=== PATIENT | female | born 1950 | race Caucasian/White ===

== ENCOUNTER → 2025-02-25 | Outpatient (CLI) | payer OTHER, SELFPAY ==
--- NOTE | 2025-02-25 12:34 | XR_ITS ---
Examination: Knee, left , 3 views Technique: Knee AP, lateral, oblique 3 views Date and time of exam: February 25, 2025 1333 hours INDICATIONS: Left knee pain years FINDINGS: Advanced tricompartment osteoarthritis, most severe medial joint space Moderate knee effusion No fracture IMPRESSION: Advanced tricompartment osteoarthritis
== END | disposition home or self-care (01) ==
LOC: CDIM 12:17
PROVIDERS: PCP Internal Medicine; Referring Provider Physical Medicine & Rehabilitation Pain Medicine; Visit Provider Physical Medicine & Rehabilitation Pain Medicine
DX: M17.12 Unilateral primary osteoarthritis, left knee (principal)
CPT/HCPCS: 73562

== ENCOUNTER → 2025-04-07 | Outpatient (CLI) | payer OTHER, SELFPAY ==
[2025-04-07 10:29] LABS: Basophils # (Auto) 0.1 Thou/mm3 (0.0-0.2); Basophils % (Auto) 1 % (0-2.5); Eosinophils # (Auto) 0.3 Thou/mm3 (0.0-0.5); Eosinophils % (Auto) 6 % (0-10); Hematocrit 35.8 % (36.0-46.0); Immature Granulocytes % (Auto) 0 % (0-0); Immature Granulocytes Auto 0.01 Thou/mm3 (0.00-0.00); Lymphocytes # (Auto) 1.6 Thou/mm3 (1.0-4.8); Lymphocytes % (Auto) 31 % (10-50); Mean Corpuscular HGB Conc 33.5 g/dl (31.0-37.0); Mean Corpuscular Hemoglobin 28.4 pg (25.0-35.0); Mean Corpuscular Volume 85 fL (80-100); Monocytes # (Auto) 0.3 Thou/mm3 (0.0-0.8); Monocytes % (Auto) 6 % (0-12); Neutrophils % (Auto) 57 % (37-80); Nucleated Red Blood Cell % 0 /100 WBC (0); Platelet Count 306 Thou/mm3 (140-440); Red Blood Count 4.23 Miln/mm3 (4.00-5.20); White Blood Count 5.3 Thou/mm3 (3.6-11.0)
[2025-04-07 10:42] LABS: Albumin, Serum 4.6 gm/dL (3.4-4.8); Anion Gap 6 (7-16); BUN/Creatinine Ratio 11 Ratio (12-20); Blood Urea Nitrogen 13 mg/dL (9-23); Carbon Dioxide 28.8 mMol/L (20.0-31.0); Cardiac Risk Estimate 2.9 RATIO (3.7-5.6); Chloride 105 mMol/L (98-107); Cholesterol 155 mg/dL (132-200); Creatinine (Component) 1.2 mg/dL (0.6-1.3); Glucose 121 mg/dL (74-106); HDL Cholesterol 53 mg/dL (40-60); LDL Cholesterol,Calculated 75 mg/dL (0-130); Osmolality,Calculated 280 (275-295); Phosphorous 3.7 mg/dL (2.4-5.1); Potassium 3.7 mMol/L (3.4-5.1); Sodium 140 mMol/L (136-145); Triglycerides 137 mg/dL (30-150); eGFR 48 See Note
== END | disposition home or self-care (01) ==
LOC: COPL 09:43
PROVIDERS: PCP Internal Medicine; Referring Provider Internal Medicine; Visit Provider Internal Medicine
DX: N17.9 Acute kidney failure, unspecified (principal); I10 Essential (primary) hypertension; E78.5 Hyperlipidemia, unspecified
CPT/HCPCS: 36415; 80061; 80069; 81001; 85025

== ENCOUNTER → 2025-04-08 | Outpatient (CLI) | payer OTHER, SELFPAY ==
[2025-04-08 13:47] LABS: Collection Type, Urine Catheter
[2025-04-08 14:32] LABS: Bilirubin,Urine Negative (Negative); Blood,Urine Negative (Negative); Clarity,Urine Clear (Clear/Hazy); Color,Urine Lt-Yellow (Lt Yel-Yel); Glucose, Urine Negative (Negative); Ketones,Urine Negative (Negative); Leukocyte Esterase,Urine Positive (Negative); Nitrite,Urine Negative (Negative); PH,Urine 6.5 (5.0-7.0); Protein,Urine Negative (Neg - Trace); RBC,Urine 5 /hpf (0-3); Specific Gravity,Urine 1.017 (1.001-1.035); Squamous Epithelial Cell,Urine 1 /hpf (0-5); Urobilinogen,Urine Negative mg/dL (0.0-1.0); WBC,Urine 9 /hpf (0-5)
== END | disposition home or self-care (01) ==
LOC: SLDO 13:41
PROVIDERS: PCP Internal Medicine; Referring Provider Internal Medicine; Visit Provider Internal Medicine
DX: N17.9 Acute kidney failure, unspecified (principal); I10 Essential (primary) hypertension; E78.5 Hyperlipidemia, unspecified
CPT/HCPCS: 81001

== ENCOUNTER → 2025-05-10 | Outpatient (CLI) | payer OTHER, SELFPAY ==
--- NOTE | 2025-05-10 | XR_ITS ---
Examination:Right hip AP, lateral, AP pelvis 3 views Technique: Hip AP lateral, AP pelvis, 3 views Exam date and time:May 10, 2025 0808 hours INDICATIONS: Right hip pain 5 months. FINDINGS: No right hip fracture or dislocation Left hip bones of the pelvis intact Bilateral mild to moderate hip osteoarthritis IMPRESSION: Bilateral mild to moderate hip osteoarthritis.
== END | disposition home or self-care (01) ==
LOC: CDIM 07:42
PROVIDERS: PCP Internal Medicine; Referring Provider Internal Medicine; Visit Provider Internal Medicine
DX: M16.11 Unilateral primary osteoarthritis, right hip (principal)
CPT/HCPCS: 73502

== ENCOUNTER 2025-07-30 08:00 | Outpatient (RCR) | payer OTHER, SELFPAY ==
--- NOTE | 2025-07-09 09:41 | PTNOTE_ITS ---
PT OP Initial Eval Patient Information Outpatient Physical Therapy Treatment Date: 07/09/25 Visit Reasons: right hand pain Medical Diagnosis: M79.644; M25.641 Treatment Dx #1: Right 2nd Digit Mobility Deficits Treatment Dx #2: Right Hand Weakness Start of Care: 07/09/25 Date of Onset: 05/25/25 Smoking Status Smoking Status: Never smoker Initial Assessment Subjective: Pt is a 74 y/o female s/p right index proximal interphalangeal joint implant arthroplasty with stabilization and centralization of extensor tendons 05/25/25. Pt still has pain (5/10) with activities. Pt has limitation with gripping, lifting, chores, self care, cooking, driving, and performing leisure activities. Objective: Right Wrist AROM: all motions are WFL Right 2nd Digit Flexion AROM MCP: 90 deg PIP: 46 deg DIP: neutral Right Wrist MMTs: grossly 3-/5 Organ Tuner Electronic Strength L: 43 lbs R: 10 lbs Assessment: Pt demonstrate right 2nd digit mobility deficits with weakness s/p surgery leading to difficulty with ADLs. Pt will benefit from physical therapy to increase ROM, strength, and work on hand dexterity Short Term and Pony Trimmer Goals 1) Increase right estate planning paralegal strength to 40 lbs in 8 wks to be able to perform gripping activities 2) Decrease hand pain to 2/10 in 8 wks to be able to perform chores 3) Increase right wrist AROM WNL in 8 wks to be able to perform recreational activities 4) Increase right 2nd digit flexion AROM WFL in 8 wks to be able to perform leisure activities 5) Indep with HEP Treatment Plan 1) Manual Therapy 2) Therapeutic Activities 3) Therapeutic Exercises 4) Modalities (ice, heat) Frequency and Duration: 2 x wk for 8 wks Certification Dates: 07/09/25 to 10/09/25 Procedure Charges OP PT Eval Mod Complex 30 minutes: Yes
--- NOTE | 2025-07-16 15:59 | PT.ODAYNRPT ---
PT Outpatient Daily Note OP Daily Note Outpatient Physical Therapy Treatment Date: 07/16/25 Visit Reasons: right hand pain Subjective: No new concerns. Objective: PLease see flow sheet for ther ex list. Assessment: MInimal TTP during scar mobs and PROM. Plan: Assess response to treatment. Length of Time (minutes) of Treatment: 30 Minutes Procedure Charges Therapeutic Exercise 30 minutes: Yes
--- NOTE | 2025-07-20 13:54 | PT.ODAYNRPT ---
PT Outpatient Daily Note OP Daily Note Outpatient Physical Therapy Treatment Date: 07/20/25 Visit Reasons: right hand pain Subjective: Pt reports finger swelling has gone down. Objective: Please see flow sheet for ther ex list. Assessment: Pt presents in clinic with decrease swelling of 2nd digit, continue with focus on improving ROM. Plan: Continue with pOC. Length of Time (minutes) of Treatment: 30 Minutes Procedure Charges Therapeutic Exercise 30 minutes: Yes
--- NOTE | 2025-07-22 09:49 | PT.ODAYNRPT ---
PT Outpatient Daily Note OP Daily Note Outpatient Physical Therapy Treatment Date: 07/22/25 Visit Reasons: right hand pain Subjective: Pt's been able to use her hand and finger to start leisure activities. Pt feels much better and notice improvement Objective: Please see flow chart for list of ther ex performed Assessment: progressing with 2nd finger flexion AROM. Pt demonstrate improve ability to make a fist and advance to resistance exercises this session Plan: Continue with PT Length of Time (minutes) of Treatment: 30 Minutes Procedure Charges Therapeutic Exercise 15 minutes: Yes Manual Digital Forensic Examiner 15 minutes: Yes
--- NOTE | 2025-07-28 13:32 | PT.ODAYNRPT ---
PT Outpatient Daily Note OP Daily Note Outpatient Physical Therapy Treatment Date: 07/28/25 Visit Reasons: right hand pain Subjective: Pt's hand is better. Pt just seen hand specialist this morning and is satisfy with her progress so far. Pt has been able to grab and use her jewlery tools at home. Objective: Please see flow chart for list of ther ex performed Assessment: patient can make a fist ~ 90 % towards end range. Pt is progress well and added more hand exercises today with good tolerance Plan: Continue with PT Length of Time (minutes) of Treatment: 30 Minutes Procedure Charges Therapeutic Exercise 30 minutes: Yes
--- NOTE | 2025-07-30 08:41 | PT.ODAYNRPT ---
PT Outpatient Daily Note OP Daily Note Outpatient Physical Therapy Treatment Date: 07/30/25 Visit Reasons: right hand pain Subjective: Pt's right hand is doing well. Pt is having a slow start this AM and feels tired. Objective: Please see flow chart for list of ther ex performed Assessment: decrease edema noted distal phalanx; Pt continue to exhibit edema at the MCP region and STM helped decrease swelling. Pt continues to progress with hand exercises and add 1# to wrist extension and flexion ROM Plan: Continue with PT Length of Time (minutes) of Treatment: 30 Minutes Procedure Charges Therapeutic Exercise 30 minutes: Yes
== END 2025-08-01 23:59 | disposition home or self-care (01) ==
LOC: CPTX 08:00
PROVIDERS: PCP Physician Assistant; Referring Provider Physician Assistant; Visit Provider Physician Assistant
DX: M79.644 Pain in right finger(s) (principal); M25.641 Stiffness of right hand, not elsewhere classified; R53.1 Weakness; Z98.890 Other specified postprocedural states
CPT/HCPCS: 97110; 97140; 97162

== ENCOUNTER 2025-08-20 09:30 | Outpatient (RCR) | payer OTHER, SELFPAY ==
--- NOTE | 2025-08-03 15:14 | PTNOTE_ITS ---
PT Outpatient Daily Note OP Daily Note Outpatient Physical Therapy Treatment Date: 08/03/25 Visit Reasons: right hand pain Subjective: Pt reports R hand is progressing, notices manager corporate responsibility improved. Objective: Please see flow sheet for ther ex list. Assessment: Pt ROM into manager corporate responsibility mobility continues to improve. Focus on restoring manager corporate responsibility and functional strength. Plan: Continue with pOC. Length of Time (minutes) of Treatment: 30 Minutes Procedure Charges Therapeutic Exercise 30 minutes: Yes
--- NOTE | 2025-08-03 15:14 | PT.ODAYNRPT ---
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 Objective: Please see flow sheet for ther ex list. Assessment: Pt ROM into sample room supervisor mobility continues to improve. Focus on restoring sample room supervisor and functional strength. Plan: Continue with pOC. Length of Time (minutes) of Treatment: 30 Minutes Procedure Charges Therapeutic Exercise 30 minutes: Yes
--- NOTE | 2025-08-05 09:30 | PT.ODAYNRPT ---
PT Outpatient Daily Note OP Daily Note Outpatient Physical Therapy Treatment Date: 08/05/25 Visit Reasons: right hand pain Subjective: Pt's hand feels much better. Pt does not have any concerns aside swelling still noted with the finger. Objective: Please see flow chart for list of ther ex performed Assessment: continue to advance patient to red resistance hand exercises with good tolerance and form. Post ice helped with soreness and edema. Pt instructed to continue STM at help to help manage edema in the fingers Plan: Continue with PT Length of Time (minutes) of Treatment: 30 Minutes Procedure Charges Therapeutic Exercise 30 minutes: Yes
--- NOTE | 2025-08-10 14:12 | PT.ODAYNRPT ---
PT Outpatient Daily Note OP Daily Note Outpatient Physical Therapy Treatment Date: 08/10/25 Visit Reasons: right hand pain Subjective: Pt reports R hand is doing better, content to share that her ability to form a fist is better. Objective: Please see flow sheet for ther ex list., Assessment: Performed PROM to 2nd digit into flexion, pt ROM continues to improve. Plan: Continue with poC. Length of Time (minutes) of Treatment: 30 Minutes Procedure Charges Therapeutic Exercise 30 minutes: Yes
--- NOTE | 2025-08-18 10:47 | PT.ODAYNRPT ---
PT Outpatient Daily Note OP Daily Note Outpatient Physical Therapy Treatment Date: 08/18/25 Visit Reasons: right hand pain Subjective: Pt reports progress with 2nd digit. Objective: Please see flow sheet for ther ex list. Assessment: ROM of 2nd digit continues to improve, focus on improving functional strength. Plan: Continue with pOC. Length of Time (minutes) of Treatment: 30 Minutes Procedure Charges Therapeutic Exercise 30 minutes: Yes
--- NOTE | 2025-08-20 10:11 | PTNOTE_ITS ---
PT OP Progress/Discharge Note Date of Service: 08/20/25 Progress Note/DC Note Progress Note/Discharge Note: Progress Note Patient Information Visit Reasons: right hand pain Medical Diagnosis: m79.644; m25.641 Treatment Dx #1: Right 2nd Digit Mobility Deficits Treatment Dx #2: Right Hand Weakness Service Continue Service or Discharge: Continue Service Certification Date Certification Dates: 08/20/25 to 11/19/25 Status Subjective: Pt's finger feels much better. Pt has been able to start light, gripping, perform chores, and cook. Pt still has limitation with opening lids and recreational activities. Pt was suppose to have a follow up appt with MD this morning but missed the appt. 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 Pt still exhibit AROM and strength impairment leading to difficulty with recreational activities, opening lids, and fine motor control tasks. Pt will continue to benefit from physical therapy to increase ROM, strength, and work on fine motor control specific tasks; thank you for your referrals. Plan: Continue with PT/POC and add 8 sessions (2 x wk for 4 wks) Procedure Charges Therapeutic Exercise 30 minutes: Yes
== END 2025-08-31 23:59 | disposition home or self-care (01) ==
LOC: CPTX 09:30
PROVIDERS: PCP Physician Assistant; Referring Provider Physician Assistant; Visit Provider Physician Assistant
DX: M79.644 Pain in right finger(s) (principal); M25.641 Stiffness of right hand, not elsewhere classified; R53.1 Weakness; Z98.890 Other specified postprocedural states
CPT/HCPCS: 97110

== ENCOUNTER → 2025-08-27 | Outpatient (CLI) | payer OTHER, SELFPAY ==
--- NOTE | 2025-08-27 08:41 | EKG_ITS ---
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
[2025-08-27 09:23] LABS: Basophils # (Auto) 0.1 Thou/mm3 (0.0-0.2); Basophils % (Auto) 1 % (0-2.5); Eosinophils # (Auto) 0.2 Thou/mm3 (0.0-0.5); Eosinophils % (Auto) 4 % (0-10); Hematocrit 36.0 % (36.0-46.0); Hemoglobin 11.8 g/dL (12.0-16.0); Immature Granulocytes Auto 0.01 Thou/mm3 (0.00-0.00); Lymphocytes # (Auto) 1.9 Thou/mm3 (1.0-4.8); Lymphocytes % (Auto) 32 % (10-50); Mean Corpuscular HGB Conc 32.8 g/dl (31.0-37.0); Mean Corpuscular Hemoglobin 28.6 pg (25.0-35.0); Mean Corpuscular Volume 87 fL (80-100); Monocytes # (Auto) 0.4 Thou/mm3 (0.0-0.8); Monocytes % (Auto) 7 % (0-12); Neutrophils # (Auto) 3.2 Thou/mm3 (1.8-7.7); Neutrophils % (Auto) 56 % (37-80); Nucleated Red Blood Cell # 0.00 Thou/mm3 (0.00-0.00); Nucleated Red Blood Cell % 0 /100 WBC (0); Platelet Count 293 Thou/mm3 (140-440); RDW Standard Deviation 43.9 fL (36.4-46.3); Red Blood Count 4.12 Miln/mm3 (4.00-5.20); White Blood Count 5.7 Thou/mm3 (3.6-11.0)
[2025-08-27 09:48] LABS: Vitamin B12 253 pg/mL (211-911); Vitamin D 25 Hydroxy Total 30.2 ng/mL (7.3-40.2)
[2025-08-27 09:57] LABS: Alanine Aminotransferase 12 U/L (10-49); Albumin, Serum 4.3 gm/dL (3.4-4.8); Albumin/Globulin Ratio 2.2 (1.2-2.2); Alkaline Phosphatase 46 U/L (46-116); Anion Gap 10 (7-16); Aspartate Amino Transferase 20 U/L (0-34); BUN/Creatinine Ratio 11 Ratio (12-20); Bilirubin,Total 0.5 mg/dL (0.3-1.2); Blood Urea Nitrogen 16 mg/dL (9-23); Calcium 9.3 mg/dL (8.3-10.6); Calcium (Corrected) 9.3 mg/dL (8.5-10.1); Carbon Dioxide 28.2 mMol/L (20.0-31.0); Cardiac Risk Estimate 2.8 RATIO (3.7-5.6); Chloride 106 mMol/L (98-107); Cholesterol 170 mg/dL (132-200); Creatinine (Component) 1.4 mg/dL (0.6-1.3); Globulin 2.0 gm/dL (2.3-3.5); Glucose 119 mg/dL (74-106); HDL Cholesterol 61 mg/dL (40-60); LDL Cholesterol,Calculated 88 mg/dL (0-130); Osmolality,Calculated 289 (275-295); Potassium 3.9 mMol/L (3.4-5.1); Sodium 144 mMol/L (136-145); Thyroid Stimulating Hormone 2.12 uIU/mL (0.55-4.78); Total Protein 6.3 gm/dL (5.7-8.2); Triglycerides 107 mg/dL (30-150); Uric Acid 3.3 mg/dL (3.1-7.8); eGFR 39 See Note
[2025-08-27 10:18] LABS: Glucose Estimated Average 126 mg/dL (80-131); Hemoglobin A1C 6.0 % Hgb (4.8-6.0)
== END | disposition home or self-care (01) ==
LOC: COPL 07:59
PROVIDERS: PCP Internal Medicine; Referring Provider Internal Medicine; Visit Provider Internal Medicine
DX: Z00.00 Encounter for general adult medical examination without abnormal findings (principal); I10 Essential (primary) hypertension; E78.5 Hyperlipidemia, unspecified; Z01.810 Encounter for preprocedural cardiovascular examination; H25.811 Combined forms of age-related cataract, right eye
CPT/HCPCS: 36415; 80053; 80061; 81001; 82306; 82607; 83036; 84443; 84550; 85025; 93005

== ENCOUNTER → 2025-09-01 | Outpatient (CLI) | payer OTHER, SELFPAY ==
[2025-09-01 07:43] LABS: Collection Type, Urine Clean Catch
[2025-09-01 08:47] LABS: Bilirubin,Urine Negative (Negative); Blood,Urine Negative (Negative); Clarity,Urine Clear (Clear/Hazy); Color,Urine Lt-Yellow (Lt Yel-Yel); Glucose, Urine Negative (Negative); Ketones,Urine Negative (Negative); Leukocyte Esterase,Urine Positive (Negative); Nitrite,Urine Negative (Negative); PH,Urine 6.5 (5.0-7.0); Protein,Urine Negative (Neg - Trace); RBC,Urine 5 /hpf (0-3); Specific Gravity,Urine 1.014 (1.001-1.035); Squamous Epithelial Cell,Urine 2 /hpf (0-5); Urobilinogen,Urine Negative mg/dL (0.0-1.0); WBC,Urine 1 /hpf (0-5)
== END | disposition home or self-care (01) ==
LOC: SLDO 07:35
PROVIDERS: Referring Provider Internal Medicine; Visit Provider Internal Medicine
DX: Z00.00 Encounter for general adult medical examination without abnormal findings (principal); I10 Essential (primary) hypertension; E78.5 Hyperlipidemia, unspecified
CPT/HCPCS: 81001

== ENCOUNTER 2025-09-27 14:00 | Outpatient (RCR) | payer OTHER, SELFPAY ==
--- NOTE | 2025-09-02 09:58 | PT.ODAYNRPT ---
PT Outpatient Daily Note OP Daily Note Outpatient Physical Therapy Treatment Date: 09/02/25 Visit Reasons: RT hand surgery Subjective: Pt finger feels good. Pt has a follow up appt with surgeon tomorrow. Pt started oil painting and been able to make jewelry Objective: Please see flow chart for list of ther ex performed Assessment: progressing with hand strength and has been able to start leisure activities with less limitation Plan: Continue with PT Length of Time (minutes) of Treatment: 30 Minutes Procedure Charges Therapeutic Exercise 30 minutes: Yes
--- NOTE | 2025-09-10 13:50 | PT.ODAYNRPT ---
PT Outpatient Daily Note OP Daily Note Outpatient Physical Therapy Treatment Date: 09/10/25 Visit Reasons: RT hand surgery Subjective: Pt seen surgeon lately and recommends her to use neftali wrap to assist with stretching the finger into flexion. Pt feels stronger and has been able to cook and clean longer with less limitaiton. Objective: Please see flow chart for list of ther ex performed Assessment: progress patient to green gripper with good form noted; however, fatigue post exercises due to increase resistance Plan: Continue with PT Length of Time (minutes) of Treatment: 30 Minutes Procedure Charges Therapeutic Exercise 30 minutes: Yes
--- NOTE | 2025-09-20 13:08 | PT.ODAYNRPT ---
PT Outpatient Daily Note OP Daily Note Outpatient Physical Therapy Treatment Date: 09/20/25 Visit Reasons: RT hand surgery Subjective: Pt reports R hand is doing better, reaching up and making a fist with hand to show that her ability to make a fist has improved. Objective: Please see flow sheet for ther ex list. Assessment: Perfomred manual PROM to DIP and PIP into flexion, initially pt guarded but after a few attempt pt able to relax allowing for increase range. Plan: Continue with POC. Length of Time (minutes) of Treatment: 30 Minutes Procedure Charges Therapeutic Exercise 30 minutes: Yes
--- NOTE | 2025-09-24 11:47 | PTNOTE_ITS ---
PT Outpatient Daily Note OP Daily Note Outpatient Physical Therapy Treatment Date: 09/24/25 Visit Reasons: RT hand surgery Subjective: Pt's hand is better. Pt notice more strength. Pt needs to get better soon due to needing to take care of her grandkid. Objective: Right Toy Assembly Supervisor Strength: 34 lbs Assessment: Pt continues to slowly improve with hand strength as above measurement. Added more resistance and weight to exercises with good tolerance Plan: Continue with PT Length of Time (minutes) of Treatment: 30 Minutes Procedure Charges Therapeutic Exercise 30 minutes: Yes
--- NOTE | 2025-09-27 13:38 | PT.ODAYNRPT ---
PT Outpatient Daily Note OP Daily Note Outpatient Physical Therapy Treatment Date: 09/27/25 Visit Reasons: RT hand surgery Subjective: Pt's hand feels good. No new concerns to report. Objective: Please see flow chart for list of ther ex performed Assessment: tolerate exercises with minimal pain Plan: Continue with PT Length of Time (minutes) of Treatment: 30 Minutes Procedure Charges Therapeutic Exercise 30 minutes: Yes
== END 2025-10-01 23:59 | disposition home or self-care (01) ==
LOC: CPTX 14:00
PROVIDERS: PCP Physician Assistant; Referring Provider Physician Assistant; Visit Provider Physician Assistant
DX: M79.644 Pain in right finger(s) (principal); R53.1 Weakness; Z98.890 Other specified postprocedural states
CPT/HCPCS: 97110

== ENCOUNTER → 2025-10-04 | Outpatient (CLI) | payer OTHER, SELFPAY ==
--- NOTE | 2025-10-04 16:33 | XR_ITS ---
Examination: Abdomen AP single view Technique: AP portable supine abdomen, single view Exam date and time: October 04, 2025, 1710 hours INDICATIONS: Abdominal pain beginning 1 week ago. FINDINGS: Moderate to large amount of stool throughout the colon. No obstruction. No free air IMPRESSION: Moderate to large amounts of stool throughout the colon
== END | disposition home or self-care (01) ==
LOC: CDIM 16:26
PROVIDERS: Referring Provider Internal Medicine; Visit Provider Internal Medicine
DX: K59.00 Constipation, unspecified (principal)
CPT/HCPCS: 74018

== ENCOUNTER 2025-10-18 20:40 | Emergency (ER) | payer OTHER, SELFPAY ==
[2025-10-18 20:41] VITALS: BP 185/79; PULSE 76; TEMP 36.9; O2SAT 95
[2025-10-18 20:42] VITALS: BMI 34.7
[2025-10-18 20:47] VITALS: PULSE 73; RESP 19; O2SAT 99
--- NOTE | 2025-10-18 20:47 | XR_ITS ---
Examination: CT brain head without contrast. 2-D sagittal coronal reconstructions Date and time of exam: October 18, 2025, 1010 hours INDICATIONS: Ground-level fall today with injury to the head, head pain CTDI: vol (mGy): 48.6 DLP: (mGycm): 947 Technique: Multiple CT axial sections of the brain have been obtained, 5 mm slice thickness. Contrast has not been administered. 2-D sagittal, coronal reconstructions have been obtained Low dose protocols were performed. One or more of the following dose reduction techniques were used; automated exposure control, adjustment of the mA and/or KV according to patient size, use of iterative reconstruction technique. Findings: No significant ventricular enlargement. Intra-axial or extra-axial hemorrhage density is not seen. No mass effect or midline shift Basal cisterns are not remarkable. Fourth ventricle is midline. Cranial vault intact. Impression: Negative for acute hemorrhage, mass effect or midline shift
--- NOTE | 2025-10-18 20:47 | XR_ITS ---
Examination: Wrist, right 3 views Technique: Wrist AP, oblique, lateral 3 views Date and time of exam: October:2024, 2107 hours INDICATIONS: Patient fell today with injury to the wrist, wrist pain. FINDINGS: Severe osteopenia Significant narrowing radiocarpal and intercarpal joints No acute fracture IMPRESSION: No acute fracture
--- NOTE | 2025-10-18 20:48 | PD.EDADULT ---
ED General RME/HPI General Chief complaint: Wound/Laceration Stated complaint: LACERATION Time Seen by Provider: 10/18/25 20:46 Arrival date/time: 10/18/25 20:40 CC: Ground-level fall resulting in wrist pain wrist laceration. EMS reports stable vital signs. Patient was awake alert oriented denies LOC or striking her head however the patient states she was woozy , after standing up. EMS report her ambulating to the [facility]. Fairly consistent bleeding from the laceration site on the dorsum of the right wrist. Patient is awake alert oriented nontoxic-appearing not in any acute distress does not know when she got her last tetanus. Localized pain is 4-5 on a 10 scale. Related Data Home Medications ?Medication ?Instructions ?Recorded ?Confirmed simvastatin 20 mg tablet (Zocor) 20 mg PO HS #0 tabs 08/31/15 07/24/23 cyanocobalamin (vitamin B-12) 1,500 mcg PO DAILY 07/24/23 07/24/23 1,500 mcg tablet,extended release ergocalciferol (vitamin D2) 1,250 1,250 mcg PO QWEEK 07/24/23 07/24/23 mcg (50,000 unit) capsule (Vitamin D2) losartan 100 1 tab PO DAILY 07/24/23 07/24/23 mg-hydrochlorothiazide 12.5 mg tablet omeprazole 20 mg capsule,delayed 20 mg PO DAILY 07/24/23 07/24/23 release paroxetine HCl 20 mg tablet (Paxil) 20 mg PO DAILY 07/24/23 07/24/23 pregabalin 75 mg capsule 75 mg PO TID 07/24/23 07/24/23 trazodone 50 mg tablet 50 mg PO DAILY 07/24/23 07/24/23 Previous Rx's ?Medication ?Instructions ?Recorded cephalexin 500 mg capsule 500 mg PO BID #14 caps 10/18/25 Allergies Allergy/AdvReac Type Severity Reaction Status Date / Time No Known Allergies Allergy Verified 07/22/23 15:25 Review of Systems Review of Systems Narrative Review of Systems: GEN: No fever, no chills, no weight loss EYES: No discharge, no visual changes, no pain HEENT: No ear pain, no congestion, no sore throat PULM: No shortness of breath, no cough, no congestion CV: No chest pain, no dyspnea on exertion, no palpitations GI: No nausea, no vomiting, no diarrhea, no pain, no constipation : No frequency, no urgency, no dysuria MUSC/SKEL: + joint pain, no back pain SKIN:+ Laceration, no rash PSYCH: No hallucinations, no depression HEME/LYMPH: No easy bleeding or bruising tendencies NEURO: No weakness, no headache Past Medical History Past Medical History NEUROLOGIC: Negative Neurological Disorders CARDIAC: Positive Cardiac Disorders, Hypercholesterolemia and Hypertension; Negative Congestive Heart Failure RESPIRATORY: Negative Chronic Obstructive Pulmonary Disease (COPD) GASTROINTESTINAL: Positive Gastrointestinal Disorders and Diverticulitis GENITOURINARY: Positive Genitourinary Disorders (kidney cyst), Renal Disease and Kidney Stones MUSCULOSKELETAL: Positive Musculoskeletal Disorders and Osteoporosis ENT: Positive Cataracts (beginning of cataracts 2022) ENDOCRINE: Negative Endocrine Disorders, Diabetes Mellitus Type 1 or Diabetes Mellitus Type 2 HEMATOLOGIC: Positive Blood Disorders and Anemia PSYCHO/SOCIAL: Positive Depression and Anxiety OTHER HISTORY: Negative Cancer Surgical History SURGICAL: Positive Tonsillectomy Social History SMOKING STATUS: Never smoker ED Exam Narrative Physical exam: [General: Not in any acute distress Head normocephalic HEENT: Within acceptable limits Neck is supple nontender Chest equal chest rise nontender to palpation Respiratory: Clear to auscultation no wheezes crackles or rubs CV: Rate rhythm is regular no murmurs rubs or clicks Abdomen is distended secondary to body habitus soft nontender no masses positive bowel sounds all 4 quadrants Back: No CVA tenderness no spinous process tenderness from cervical spine thoracic and lumbar spine Skin: 1 cm full-thickness laceration to center dorsum of the wrist, no other abrasions lacerations. Otherwise skin is intact no petechiae rash induration ulceration or crepitus Extremities: Decreased range of motion of the right wrist secondary to age related immobility per patient. Moving all other extremities against resistance cap refill less than 2 seconds neurosensory intact Neuro: Awake alert oriented x3 Glascow coma 15 no focal deficits] Course Course Course Narrative: Reassessment of this patient at 2230, the patient has no deterioration in neurologic status throughout her visit the emergency room. CT head C-spine is negative as interpreted by radiology patient will be discharged home with fall and wrist laceration. Quality Measures none Orders Category Date Time Status Set Up Suture Tray STAT Care 10/18/25 20:[address] cervical spine wo con Stat Exams 10/18/25 21:[address] head/brain wo con Stat Exams 10/18/25 20:47 Completed XR wrist comp RT min 3V Stat Exams 10/18/25 20:47 Completed Acetaminophen Tab [Tylenol Tab] Med 10/18/25 21:52 Discontinued 650 mg PO X1 ONE Lidocaine 1% 20 ml [Xylocaine 1% 20 ML] Med 10/18/25 20:47 Discontinued 10 ml INFL X1 ONE TET,DIP/PERT AC (Adult)-Tdap [Boostrix Adult (Tdap) Med 10/18/25 20:47 Discontinued Vacc] 0.5 ml IMI .ONCE ONE Vital Signs Vital signs: Vital Signs Temperature 98.4 F 10/18/25 20:41 Pulse Rate 76 10/18/25 20:41 Blood Pressure 185/79 H 10/18/25 20:41 Pulse Oximetry (%) 95 10/18/25 20:41 Oxygen Delivery Method Room Air 10/18/25 20:41 PROCEDURES: Procedure Comment Laceration repair: Anesthesia: 1% lidocaine without epinephrine 3 mL injected local site, site was cleaned and probed no foreign body was found site was approximated 2 interrupted sutures of 4-0 Ethilon good approximation without complication patient tolerated the procedure well bulky dressing was applied. Discharge Plan Plan Patient Disposition: HOME (Self Care) Patient condition on transfer: Stable Prescriptions/Referrals Prescriptions/Med Rec: New cephalexin 500 mg capsule 500 mg PO BID Qty: 14 0RF No Action simvastatin [Zocor] 20 MG tablet 20 mg PO HS Qty: 0 paroxetine HCl [Paxil] 20 mg Tablet 20 mg PO DAILY losartan-hydrochlorothiazide 100-12.5 mg tablet 1 tab PO DAILY Patient Comments: TAKE 1 TABLET BY MOUTH EVERY DAY :STOP VALSARTAN/HCTZ pregabalin 75 mg Capsule 75 mg PO TID omeprazole 20 mg Capsule,Delayed Release(Dr/Ec) 20 mg PO DAILY cyanocobalamin (vitamin B-12) 1,500 mcg Tablet Extended Release 1,500 mcg PO DAILY ergocalciferol (vitamin D2) [Vitamin D2] 1,250 mcg (50,000 unit) Capsule 1,250 mcg PO QWEEK trazodone 50 mg Tablet 50 mg PO DAILY Referrals: Heidi Lisa MD [Primary Care Provider, Nephrology] - In 1 week Problem List Clinical Impression: Fall, Contusion of right wrist, Laceration of wrist Patient/Caregiver Discharge Instructions Other Activity Instructions:: There is a prescription for antibiotics at the pharmacy, do not pick them up unless you feel that there are signs or symptoms of infection at the laceration if so start the antibiotics if the symptoms continue to worsen such as redness pus or red streaks up the arm return the emergency room for reevaluation. Stitches out in 12 to 14 days. You will be stiff and sore for the next several days be very careful with your balance, use ibuprofen or Tylenol for temporary pain relief heating pads or ice can also be used for temporary pain relief. Education Materials: Fall Prevention Assessing Risk, ED Laceration: All Closures Print Language: Zambian Stand Alone Forms: [employer] Award Info., Work/School Release, Patient Portal Info Letter TY/MONY Supervising Physician LUIS E Supervising Physician: James Miranda ENP [facility] Clinical Information Provided by: patient and EMS Medical Records reviewed [facility] and EMS Meds/Rx considered, not ordered None Labs/Rad/Tests considered, not ordered None Chronic Illness/Social Conditions Explain: Hypertension hyperlipidemia depression EKG EKG not done Labs Labs: none Imaging Imaging interpretation: interpreted by me Imaging Interpretation(s): Wrist x-rays negative for foreign body or fracture CT head and C-spine is negative for any acute finding requires emergent or immediate intervention Medication Administration(s) Medication Administration History Discontinued Medications Acetaminophen (Acetaminophen 325 Mg Tablet) 650 mg PO X1 ONE Stop: 10/18/25 21:53 Last Admin: 10/18/25 22:01 Dose: 650 mg Documented By: MAYNOR Diphtheria/Tetanus/Acell Pertussis (Diphth,Pertuss(Acell),Tet Vac 0.5 Ml Syr- Adult) 0.5 ml IMi .ONCE ONE Stop: 10/18/25 20:48 Last Admin: 10/18/25 20:53 Dose: 0.5 ml Documented By: MAYNOR Lidocaine HCl (Lidocaine Hcl 1% 20 Ml Vial) 10 ml INFL X1 ONE Stop: 10/18/25 20:48 Last Admin: 10/18/25 20:54 Dose: 10 ml Documented By: MAYNOR Comments: administrated by provider.
[2025-10-18] MEDS: DIPHTH,PERTUSS(ACELL),TET VAC 0.5 ML SYR- ADULT IMi (20:53)
[2025-10-18] MEDS: LIDOCAINE HCL 1% 20 ML VIAL 10 ML INFL (20:54)
--- NOTE | 2025-10-18 21:08 | XR_ITS ---
Examination: CT cervical spine without contrast 2-D sagittal reconstructions 2-D coronal reconstructions 3-D reconstructions. Exam date and time: October 18, 2025, 1001 hours INDICATIONS: Ground-level fall today with injury to the neck, neck pain CTDI:vol (mGy) 14 DLP: (mGycm) 262 Technique: Multiple 2 mm axial sections of the cervical spine have been obtained. The coronal and sagittal reconstructions have been obtained. 3-D reconstructions have been obtained. Low dose protocols were performed. One or more of the following dose reduction techniques were used; automated exposure control, adjustment of the mA and/or KV according to patient size, use of iterative reconstruction technique. Findings: Axial sections demonstrate intact base of the skull. C1 exhibit satisfactory relationship to the odontoid. No acute cervical vertebral body fracture seen. Alignment posterior spinous processes satisfactory. Impression: No acute cervical fracture.
[2025-10-18] MEDS: ACETAMINOPHEN 325 MG TABLET 650 MG PO (22:01)
[2025-10-18 22:46] VITALS: BP 180/70; PULSE 78; RESP 18; TEMP 36.6; O2SAT 99
== END 2025-10-18 22:47 | disposition home or self-care (01) ==
PROVIDERS: Emergency Provider Emergency Medicine; PCP Internal Medicine
DX: S61.511A Laceration without foreign body of right wrist, initial encounter (principal); Z23 Encounter for immunization; W45.8XXA Other foreign body or object entering through skin, initial encounter
CPT/HCPCS: 12001; 70450; 72125; 73110; 90471; 90715; 99283; J3490; A9270

== ENCOUNTER 2025-10-22 10:00 | Outpatient (RCR) | payer OTHER, SELFPAY ==
--- NOTE | 2025-10-14 10:39 | PT.ODAYNRPT ---
PT Outpatient Daily Note OP Daily Note Outpatient Physical Therapy Treatment Date: 10/14/25 Visit Reasons: right hand pain Subjective: Pt's hand feels good no new concerns to report. Pt continues to perform her leisure activities with minimal limitation. Objective: Please see flow chart for list of ther ex performed Assessment: tolerate exercises with minimal pain; added shoulder exercise to progress strengthening to the right UE Plan: Continue with PT Length of Time (minutes) of Treatment: 30 Minutes Procedure Charges Therapeutic Exercise 30 minutes: Yes
--- NOTE | 2025-10-22 10:29 | PT.ODAYNRPT ---
PT Outpatient Daily Note OP Daily Note Outpatient Physical Therapy Treatment Date: 10/22/25 Visit Reasons: right hand pain Assessment: Pt has fallen a few days ago and hurt the right UE and wrist. Imaging was completed no known fracture. Pt mentioned she has a few stitches from a deep cut. PT was witheheld today and advised patient to follow up with hand surgeon or PCP for clearance to resume physical therapy safely
== END 2025-10-31 23:59 | disposition home or self-care (01) ==
LOC: CPTX 10:00
PROVIDERS: PCP Surgery Surgery of the Hand; Referring Provider Surgery Surgery of the Hand; Visit Provider Surgery Surgery of the Hand
DX: M79.644 Pain in right finger(s) (principal); M25.641 Stiffness of right hand, not elsewhere classified; R53.1 Weakness; Z98.890 Other specified postprocedural states
CPT/HCPCS: 97110

== ENCOUNTER 2025-11-09 14:22 | Outpatient (RCR) | payer OTHER, SELFPAY ==
--- NOTE | 2025-11-09 16:06 | PT.ODS1RPT ---
PT OP Progress/Discharge Note Date of Service: 11/09/25 Progress Note/DC Note Progress Note/Discharge Note: DC Note Patient Information Visit Reasons: RIGHT FINGER PAIN Medical Diagnosis: m79.644; M25.641 Treatment Dx #1: Right Hand Weakness Service Continue Service or Discharge: Discharge Discharge Date: 11/09/25 Status Subjective: Pt's hand and finger feels great. 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 Pt has met all set goals in therapy and will no longer benefit from physical therapy. Pt was instructed on HEP last session and educated to continue exercises to maintain overall mobility. Pt perfomed all exercises safely, thank you for your referrals. Plan: D/C home with HEP and follow up with MD ANDERSEN Procedure Charges Therapeutic Exercise 30 minutes: Yes
== END 2025-12-01 23:59 | disposition home or self-care (01) ==
LOC: CPTX 14:22
PROVIDERS: PCP Nurse Practitioner Gerontology; Referring Provider Nurse Practitioner Gerontology; Visit Provider Nurse Practitioner Gerontology
DX: M79.644 Pain in right finger(s) (principal); M25.641 Stiffness of right hand, not elsewhere classified; R53.1 Weakness; Z98.890 Other specified postprocedural states
CPT/HCPCS: 97110

== ENCOUNTER → 2025-11-17 | Outpatient (CLI) | payer OTHER, SELFPAY ==
[2025-11-17 13:36] LABS: Basophils # (Auto) 0.0 Thou/mm3 (0.0-0.2); Basophils % (Auto) 1 % (0-2.5); Eosinophils # (Auto) 0.4 Thou/mm3 (0.0-0.5); Eosinophils % (Auto) 8 % (0-10); Hematocrit 34.2 % (36.0-46.0); Hemoglobin 11.0 g/dL (12.0-16.0); Immature Granulocytes Auto 0.01 Thou/mm3 (0.00-0.00); Lymphocytes # (Auto) 1.7 Thou/mm3 (1.0-4.8); Lymphocytes % (Auto) 34 % (10-50); Mean Corpuscular HGB Conc 32.2 g/dl (31.0-37.0); Mean Corpuscular Hemoglobin 28.1 pg (25.0-35.0); Mean Corpuscular Volume 88 fL (80-100); Monocytes # (Auto) 0.3 Thou/mm3 (0.0-0.8); Monocytes % (Auto) 7 % (0-12); Neutrophils # (Auto) 2.5 Thou/mm3 (1.8-7.7); Neutrophils % (Auto) 51 % (37-80); Nucleated Red Blood Cell # 0.00 Thou/mm3 (0.00-0.00); Nucleated Red Blood Cell % 0 /100 WBC (0); Platelet Count 452 Thou/mm3 (140-440); RDW Standard Deviation 47.8 fL (36.4-46.3); Red Blood Count 3.91 Miln/mm3 (4.00-5.20); White Blood Count 4.9 Thou/mm3 (3.6-11.0)
[2025-11-17 14:04] LABS: Glucose Estimated Average 131 mg/dL (80-131); Hemoglobin A1C 6.2 % Hgb (4.8-6.0)
[2025-11-17 14:09] LABS: Alanine Aminotransferase 10 U/L (10-49); Albumin, Serum 4.5 gm/dL (3.4-4.8); Albumin/Globulin Ratio 2.0 (1.2-2.2); Alkaline Phosphatase 46 U/L (46-116); Anion Gap 11 (7-16); Aspartate Amino Transferase 17 U/L (0-34); BUN/Creatinine Ratio 11 Ratio (12-20); Bilirubin,Total 0.3 mg/dL (0.3-1.2); Blood Urea Nitrogen 12 mg/dL (9-23); Calcium 9.3 mg/dL (8.3-10.6); Calcium (Corrected) 9.3 mg/dL (8.5-10.1); Carbon Dioxide 27.0 mMol/L (20.0-31.0); Chloride 106 mMol/L (98-107); Creatinine (Component) 1.1 mg/dL (0.6-1.3); Globulin 2.2 gm/dL (2.3-3.5); Glucose 132 mg/dL (74-106); Osmolality,Calculated 288 (275-295); Potassium 3.8 mMol/L (3.4-5.1); Sodium 144 mMol/L (136-145); Total Protein 6.7 gm/dL (5.7-8.2); eGFR 53 See Note
== END | disposition home or self-care (01) ==
LOC: COPL 12:25
PROVIDERS: PCP Internal Medicine; Referring Provider Orthopaedic Surgery; Visit Provider Orthopaedic Surgery
DX: Z01.818 Encounter for other preprocedural examination (principal); Z01.812 Encounter for preprocedural laboratory examination; M17.12 Unilateral primary osteoarthritis, left knee; I10 Essential (primary) hypertension; Z13.1 Encounter for screening for diabetes mellitus
CPT/HCPCS: 36415; 80053; 83036; 85025; 87081